=== PATIENT | female | born 1970 | race Hispanic/Latino ===

== ENCOUNTER 2017-11-16 13:05 | Inpatient (IN) | payer OTHER ==
[2017-11-16] MEDS ORDERED: Sodium Chloride 0.9% 1,000 ML IV STA (13:21)
--- NOTE | 2017-11-16 13:27 | ED PDOC ---
HPI: Psych/Substance Abuse Time Seen by Provider: 11/16/17 13:15 Chief Complaint (Nursing): Psychiatric Evaluation Chief Complaint (Provider): Suicidal History Per: Patient History/Exam Limitations: no limitations Onset/Duration Of Symptoms: Days Current Symptoms Are (Timing): Still Present Additional Complaint(s): Pt. mother called ambulance because pt. states she was suicidal and took meds to hurt self (unclear which). Pt. brought by ambulance and in triage pt. states she took valium, alcohol, and coccaine. Pt. states to provider she took xanax to hurt self 2 weeks ago. Pt. denies any pain, weakness, headaches, chest pain, dyspnea, cough, nausea, vomit, diarrhea, abd pain. No cuts to self. Past Medical History Reviewed: Nursing Documentation, Vital Signs Vital Signs: Last Vital Signs Temp 98.0 F 11/16/17 13:07 Pulse 91 H 11/16/17 13:07 Resp 20 11/16/17 13:07 BP 114/75 11/16/17 13:07 Pulse Ox 97 11/16/17 13:07 - Medical History PMH: Denies: Asthma, CAD - Surgical History Surgical History: No Surg Hx - Family History Family History: States: Unknown Family Hx - Living Arrangements Living Arrangements: With Family - Social History Current smoker - smoking cessation education provided: No Alcohol: Occasional Drugs: Cocaine - Allergies Allergies/Adverse Reactions: Allergies Allergy/AdvReac Type Severity Reaction Status Date / Time No Known Allergies Allergy Verified 11/16/17 13:07 Review of Systems ROS Statement: Except As Marked, All Systems Reviewed And Found Negative Psych: Positive for: Suicidal ideation Physical Exam - Reviewed Nursing Documentation Reviewed: Yes Vital Signs Reviewed: Yes - Physical Exam Appears: Positive for: Non-toxic, No Acute Distress Head Exam: Positive for: ATRAUMATIC, NORMAL INSPECTION, NORMOCEPHALIC Skin: Positive for: Normal Color, Warm, DRY Eye Exam: Positive for: EOMI, Normal appearance, PERRL ENT: Positive for: Normal ENT Inspection Neck: Positive for: Normal, Painless ROM Cardiovascular/Chest: Positive for: Regular Rate, Rhythm Respiratory: Positive for: CNT, Normal Breath Sounds Gastrointestinal/Abdominal: Positive for: Normal Exam, Soft. Negative for: Tenderness Back: Positive for: Normal Inspection. Negative for: L CVA Tenderness, R CVA Tenderness Extremity: Positive for: Normal ROM. Negative for: Tenderness, Pedal Edema Neurologic/Psych: Positive for: Alert, adult literacy instructor II-XII, Oriented. Negative for: Motor/Sensory Deficits, Aphasia, Facial Droop - Laboratory Results Result Diagrams: 11/16/17 13:57 11/16/17 13:57 Interpretation Of Abn Labs: coccaine, benzo, etoh - ECG ECG: Positive for: Interpreted By Me, Viewed By Me ECG Rhythm: Positive for: Normal QRS, Normal ST Segment, Sinus Rhythm O2 Sat by Pulse Oximetry: 97 Pulse Ox Interpretation: Normal - Progress ED Course And Treament: 1332: Spoke with poison control. Aware of presentation and symptoms. Symptomatic tx. 1825: Stable. Alert. Will have crisis see pt. Dr. Jarvis to take over care. Medically stable for crisis. Disposition - Clinical Impression Clinical Impression: Drug abuse, Alcohol abuse - Disposition Disposition Time: 18:27 Condition: STABLE
[2017-11-16 14:10] LABS: BASO % 0.5 % (0.0-2.0); EOS # 0.5 K/uL (0.0-0.7); EOS % 7.1 % (0.0-4.0); LYMPH # 2.2 K/uL (1.0-4.3); LYMPH % 29.9 % (20.0-40.0); MEAN CELL VOLUME 88.7 fl (81.0-99.0); MEAN CORPUSCULAR HEMOGLOBIN 29.9 pg (27.0-31.0); MEAN CORPUSCULAR HGB CONC 33.7 g/dL (33.0-37.0); MEAN PLATELET VOLUME 7.7 fl (7.2-11.7); MONO # 0.4 K/uL (0.0-0.8); MONO % 5.8 % (0.0-10.0); NEUT # 4.2 K/uL (1.8-7.0); NEUT % 56.7 % (50.0-75.0); RBC 5.03 Mil/uL (3.80-5.20); RED CELL DISTRIBUTION WIDTH 12.4 % (11.5-14.5); WHITE BLOOD COUNT 7.4 K/uL (4.8-10.8)
[2017-11-16 14:16] LABS: PROTHROMBIN TIME 10.6 Seconds (9.8-13.1)
[2017-11-16 14:17] LABS: PARTIAL THROMBOPLASTIN TIME 32.8 Seconds (25.6-37.1)
[2017-11-16 14:25] LABS: ALB/GLOB RATIO 1.3 (1.0-2.1); ALBUMIN 4.5 g/dL (3.5-5.0); ALT/SGPT 38 U/L (9-52); AST/SGOT 41 U/L (14-36); BLOOD UREA NITROGEN 14 mg/dl (7-17); CALCIUM 9.1 mg/dL (8.4-10.2); GFR AFRICAN-AMERICAN > 60; GFR NON-AFRICAN AMERICAN > 60
[2017-11-16 14:45] LABS: BARBITURATES, UR NEGATIVE (NEGATIVE); BENZODIAZEPINES, UR POSITIVE (NEGATIVE); OPIATES, UR NEGATIVE (NEGATIVE); PHENCYCLIDINE, UR NEGATIVE (NEGATIVE)
[2017-11-16 19:22] VITALS: RESP 18
--- NOTE | 2017-11-16 19:28 | ED PDOC ---
- Laboratory Results Result Diagrams: 11/16/17 13:57 11/16/17 13:57 - ECG O2 Sat by Pulse Oximetry: 95 (RA) Pulse Ox Interpretation: Normal Medical Decision Making Medical Decision Making: Patient signed out to provider at [address] Garcia pending crisis evaluation. ---- Documented by Argenis Mcclain acting as a scribe for Anatoliy Jarvis MD. All medical record entries made by the Scribe were at my direction and personally dictated by me. I have reviewed the chart and agree that the record accurately reflects my personal performance of the history, physical exam, medical decision making, and the department course for this patient. I have also personally directed, reviewed, and agree with the discharge instructions and disposition. Disposition Discussed With : Rayna Apple Counseled Patient/Family Regarding: Studies Performed, Diagnosis - Clinical Impression Clinical Impression: Drug abuse, Alcohol abuse - POA Present On Arrival: None - Disposition Disposition: Admitted as In-Patient Disposition Time: 22:28 Condition: STABLE
[2017-11-16] MEDS ORDERED: Alum-Mag Hydrox-Simethicone Susp (30 mL) PO PRN (23:19)
[2017-11-16] MEDS ORDERED: Magnesium Hydroxide Susp 30 ml UD PO PRN (23:19)
[2017-11-16 23:23] VITALS: O2SAT 95
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
[2017-11-17] MEDS ORDERED: Pneumococcal 23-Valent Vaccine IM ONE (00:47)
[2017-11-17 07:44] LABS: T4 4.89 ug/dl (5.5-11.0)
--- NOTE | 2017-11-17 11:36 | PCM.PSYCH ---
Initial Psychiatric Evaluation - Initial Psychiatric Evaluation Type of Admission: Voluntary Legal Status: Capacity Chief Complaint (in patient's own words): "I'm depressed." Patient's Reaction to Hospitalization: HPI: 47 yo female w/ h/o depression, alcohol/benzo/cocaine use disorder, presents s/p suicide attempt by OD last week w/ Vodka, Valium and Cocaine. She reports that she has been feeling depressed in the context of conflict with her significant other. +depressed mood +anxiety +sleep disturbances +suicide attempt; denies current active suicidal ideation/plan/intent. She is agreeable to treatment w/ antidepressants but is concerned about weight gain and sexual side effects. Collateral obtained in ER by benzene worker: Joseph Paul and Cindy Cooper /[phone] Patient's stated that the patient has a drinking problem. He reported that the patient binge drinks and that she spends most of her time intoxicated. He reported that she has appeared to be depressed for some time. He however did state that while they are still he is solely in the home to take care of the son. The patient's son has Aspergers. Patients mother stated that the patient was drinking during the course of the morning and kept calling her mother's phone. She stated that the patient was saying statements to her and then hanging up. The patient was cursing her mother out at times during these calls. The call that alarmed the mother is when the daughter slurred her words and stated she had taken 8 Valiums along with alcohol. Patient later on admitted to using cocaine as well. Patient's mother then called the ambulance to go to the patient's house. Patient's mother then left the house to come up this way to meet the ambulance. PPHx: H/o two previous psychiatric hospitalization, most recent in 2004. She receives Xanax from her PMD. H/o tx w/ Lexapro, Zoloft and Depakote in the past. PMHx: Denies acute medical issues ALL: NKDA SHx: Lives w/ her and son who has Asperger's syndrome. 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 +Benzo abuse (Xanax/Valium), +ETOH abuse, +Cocaine abuse ; denies cig use. Current Medications: Active Medications Generic Name Dose Route Start Last Admin Trade Name Freq PRN Reason Stop Dose Admin Acetaminophen 650 mg 11/16/17 23:19 Tylenol 325mg Tab PO Q4 PRN Pain, moderate (4-7) Al Hydrox/Mg Hydrox/Simethicone 30 ml 11/16/17 23:19 Maalox Plus 30 Ml PO Q4 PRN Dyspepsia Folic Acid 1 mg 11/17/17 09:00 Folic Acid PO DAILY DRISS Lorazepam 2 mg 11/16/17 23:29 Ativan IM Q4 PRN Anxiety/Agitation,Unable PO Lorazepam 1 mg 11/16/17 23:29 Ativan PO Q4 PRN Anxiety/Agitation Lorazepam 0.5 mg 11/17/17 13:00 Ativan PO TID DRISS Magnesium Hydroxide 30 ml 11/16/17 23:19 Milk Of Magnesia PO HS PRN Constipation Multivitamins/Minerals 1 tab 11/17/17 09:00 Therapeutic-M Tab PO DAILY DRISS Thiamine HCl 100 mg 11/17/17 09:00 Vitamin B1 Tab PO DAILY DRISS Trazodone HCl 50 mg 11/16/17 23:19 Desyrel PO HS PRN Insomnia Past Psychiatric History - Past Psychiatric History Previous Treatment History: Inpatient Pertinent Medical Hx (Current Medical&Sleep Prob, Allergies): Allergies Allergy/AdvReac Type Severity Reaction Status Date / Time No Known Allergies Allergy Verified 11/16/17 13:07 ALPRAZolam [Xanax] 1 mg PO HS PRN 11/16/17 Review of Systems - Psychiatric Psychiatric: As Per HPI, Abnormal Sleep Pattern, Anhedonia, Anxiety, Depression , Difficulty Concentrating, Irritability, Mood Swings, Suicidal Ideation Mental Status Examination - Personal Presentation Personal Presentation: Looks stated age - Affect Affect: Constricted - Motor Activity Motor Activity: Calm - Reliability in Providing Information Reliability in Providing Information: Fair - Speech Speech: Organized, Coherent - Mood Mood: Depressed - Formal Thought Process Formal Thought Process: No Impairment - Hallucinations/Delusions Additional comments: NO AH/VH/paranoia/delusions - Obsessions/Compulsions Obsessions: No Compulsions: No - Cognitive Functions Orientation: Person, Place, Situation, Time Sensorium: Alert Attention/Concentration: Attentive Judgement: Imparied, as evidence by: Poor judgement, Imparied, as evidence by: Lack of insight into illness Memory: Recent intact, as evidence by: Ability to recall events of the day, Remote intact, as evidenced by: Abilit to recall sig. life events, Remote intact , as evidenced by: Ability to recall historical events - Risk Risk: Suicidal - Strength & Assets Inventory Strength & Assets Inventory: Family support, Cooperative DSM 5 DX - DSM 5 DSM 5 Diagnosis: Depressive Disorder r/o substance induced mood disorder; Benzodiazepine/Cocaine/ Alcohol Use Disorders - Recommended/Plan of Treatment Treatment Recommendations and Plan of Treatment: Depressive Disorder r/o substance induced mood disorder; Benzodiazepine/Cocaine/ Alcohol Use Disorders -Admit to psychiatry unit -Individual and group therapy - to call DCP&P; patient actively abusing illicit substances and alcohol and takes care of her disabled son -Start Wellbutrin -Ativan as needed to prevent ETOH/benzo withdrawal -Psychoeducation -Medicine consult -Disposition planning Projected ELOS: 5-8 days Discharge Plan and Discharge Criteria: Discharge when patient is psychiatrically stable - Smoking Cessation Smoking Cessation Initiated: No Reason for not providing: Not indicated
[2017-11-17] MEDS: Multivitamin With Minerals Tab PO SCH (13:19)
--- NOTE | 2017-11-17 15:24 | CARD ---
APPROVED REPORT EKG Measurement Heart [id number] <Conclusion> Normal sinus rhythm Normal ECG
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
[2017-11-18] MEDS: Multivitamin With Minerals Tab PO SCH (14:00)
--- NOTE | 2017-11-18 17:04 | PCM.PYCHPN ---
Psychiatric Progress Note - Psychiatric Progress Note Patient seen today, length of contact: pt evaluated discussed with team chart reviewed Patient Chief Complaint: I need to go to inpatient rehab Problems Identified/Issues Discussed: pt seen in bed, continues to be depressed, anhedonic, low energy isolative in her room, pt reported feeling down due to her current social situation and the mental condition of her son motivational therpy provided , discussed with patient joining inpatient rehab no reported side effects of mmedications pt denied any current suicidal or homicidal ideation DSM 5 Symptoms Update: alcohol induced mood disorder cocaine use disorder depression Medication Change: Yes (wellbutrin sr) Medical Record Reviewed: Yes Mental Status Examination - Cognitive Function Orientation: Person, Place, Situation, Time Attention: WNL Concentration: WNL Association: WNL Fund of Knowledge: WN Decription of patient's judgement and insights: partial insight , poor judgment - Mood Mood: Depressed - Affect Affect: Constricted - Speech Speech: Soft - Formal Thought Process Formal Thought Process: No Impairment, Circumstantial Psychotic Thoughts and Behaviors: pt denied any current perceptual disturbances - Suicidal Ideation Suicidal Ideation: No - Homicidal Ideation Homicidal Ideation: No Goal/Treatment Plan - Goal/Treatment Plan Need for Continued Stay: Severe depression anxiety, Discharge may exacerbated symptoms Progress Toward Problem(s) and Goals/Treatment Plan: wellbutrin 150mg daily motivational therapy referral to rehab
--- NOTE | 2017-11-19 08:09 | CP.PCM.PN ---
<Sultan Shilpi - Last Filed: 11/19/17 08:14> Subjective - Date & Time of Evaluation Date of Evaluation: 11/19/17 Time of Evaluation: 07:30 - Subjective Subjective: Patient seen and examined at bedside this morning during rounds. Pt reports her body aches has resolved. Denies any headache, dizziness, blurry vision, chest pain, palpitation, dyspnea, cough, GI or complaints. Denies fever or chills. Has good appetite. Reports normal BM and voiding normally. Objective - Vital Signs/Intake and Output Vital Signs (last 24 hours): Temp Pulse Resp BP Pulse Ox 98.2 F 85 18 103/65 95 11/18/17 16:40 11/18/17 16:40 11/18/17 16:40 11/18/17 16:40 11/16/17 23:23 - Medications Medications: Current Medications Acetaminophen (Tylenol 325mg Tab) 650 mg PO Q4 PRN PRN Reason: Pain, moderate (4-7) Al Hydrox/Mg Hydrox/Simethicone (Maalox Plus 30 Ml) 30 ml PO Q4 PRN PRN Reason: Dyspepsia Bupropion HCl (Wellbutrin Sr 150 Mg) 150 mg PO DAILY [facility] Folic Acid (Folic Acid) 1 mg PO DAILY [facility] Last Admin: 11/18/17 08:40 Dose: 1 mg Lorazepam (Ativan) 2 mg IM Q4 PRN PRN Reason: Anxiety/Agitation,Unable PO Lorazepam (Ativan) 1 mg PO Q4 PRN PRN Reason: Anxiety/Agitation Lorazepam (Ativan) 0.5 mg PO TID [facility] Last Admin: 11/18/17 17:14 Dose: 0.5 mg Magnesium Hydroxide (Milk Of Magnesia) 30 ml PO HS PRN PRN Reason: Constipation Multivitamins/Minerals (Therapeutic-M Tab) 1 tab PO DAILY [facility] Last Admin: 11/18/17 14:00 Dose: 1 tab Thiamine HCl (Vitamin B1 Tab) 100 mg PO DAILY [facility] Last Admin: 11/18/17 08:40 Dose: 100 mg Trazodone HCl (Desyrel) 50 mg PO HS PRN PRN Reason: Insomnia - Labs Labs: 11/16/17 13:57 11/16/17 13:57 PT 10.6 Seconds (9.8-13.1) 11/16/17 13:57 INR 1.0 (0.9-1.2) 11/16/17 13:57 APTT 32.8 Seconds (25.6-37.1) 11/16/17 13:57 - Additional Findings Additional findings: - Constitutional Appears: Non-toxic, No Acute Distress - Head Exam Head Exam: ATRAUMATIC, NORMAL INSPECTION, NORMOCEPHALIC - ENT Exam ENT Exam: Mucous Membranes Moist - Neck Exam Neck exam: Positive for: Full Rom, Normal Inspection. Negative for: Lymphadenopathy, Meningismus, Tenderness, Thyromegaly - Respiratory Exam Respiratory Exam: Clear to Auscultation Bilateral. absent: Rales, Rhonchi, Wheezes - Cardiovascular Exam Cardiovascular Exam: REGULAR RHYTHM, RRR, +S1, +S2 - GI/Abdominal Exam GI & Abdominal Exam: Normal Bowel Sounds, Soft. absent: Rebound, Rigid, Tenderness - Extremities Exam Extremities exam: Positive for: normal inspection. Negative for: calf tenderness, pedal edema - Neurological Exam Neurological exam: Alert, Oriented x3 - Psychiatric Exam Psychiatric exam: Anxious, Depressed - Skin Skin Exam: Normal Color, Warm Assessment and Plan - Assessment and Plan (Free Text) Assessment: Assessment: 47 yo female with pmhx anxiety, depression, and substance use disorder admitted to psychiatry unit for suicidal attempt with drug overdose and has no significant medical problems. Plan: Alcohol induced mood disorder, Depression -Manage per psychiatry team. Generalized bodyaches resolved. -Afebrile, Stable vitals. -CBC, CMP, TSH: WNL -Acetaminophen 650 mg po q6hr prn -Pt is medically stable -Thank you for the medicine consult and allowing to take part in patient care -Will sign off for now. Please re-consult PRN <Romain Hankins - Last Filed: 11/20/17 06:55> Objective - Vital Signs/Intake and Output Vital Signs (last 24 hours): Temp Pulse Resp BP Pulse Ox 97.5 F L 69 18 106/64 95 11/19/17 15:58 11/19/17 15:58 11/19/17 15:58 11/19/17 15:58 11/16/17 23:23 - Medications Medications: Current Medications Acetaminophen (Tylenol 325mg Tab) 650 mg PO Q4 PRN PRN Reason: Pain, moderate (4-7) Al Hydrox/Mg Hydrox/Simethicone (Maalox Plus 30 Ml) 30 ml PO Q4 PRN PRN Reason: Dyspepsia Bupropion HCl (Wellbutrin Sr 150 Mg) 150 mg PO DAILY [facility] Last Admin: 11/19/17 09:34 Dose: 150 mg Folic Acid (Folic Acid) 1 mg PO DAILY [facility] Last Admin: 11/19/17 09:34 Dose: 1 mg Lorazepam (Ativan) 2 mg IM Q4 PRN PRN Reason: Anxiety/Agitation,Unable PO Lorazepam (Ativan) 1 mg PO Q4 PRN PRN Reason: Anxiety/Agitation Magnesium Hydroxide (Milk Of Magnesia) 30 ml PO HS PRN PRN Reason: Constipation Multivitamins/Minerals (Therapeutic-M Tab) 1 tab PO DAILY [facility] Last Admin: 11/19/17 09:34 Dose: 1 tab Thiamine HCl (Vitamin B1 Tab) 100 mg PO DAILY [facility] Last Admin: 11/19/17 09:34 Dose: 100 mg Trazodone HCl (Desyrel) 50 mg PO HS PRN PRN Reason: Insomnia Last Admin: 11/20/17 01:05 Dose: 50 mg - Labs Labs: 11/16/17 13:57 11/16/17 13:57 PT 10.6 Seconds (9.8-13.1) 11/16/17 13:57 INR 1.0 (0.9-1.2) 11/16/17 13:57 APTT 32.8 Seconds (25.6-37.1) 11/16/17 13:57 Attending/Attestation - Attestation I have personally seen and examined this patient.: Yes I have fully participated in the care of the patient.: Yes I have reviewed all pertinent clinical information, including history, physical exam and plan: Yes
[2017-11-19] MEDS: Multivitamin With Minerals Tab PO SCH (09:34)
[2017-11-19] MEDS: buPROPion SR 150 MG TABLET PO SCH (09:34)
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
[2017-11-20] MEDS: Multivitamin With Minerals Tab PO SCH (08:53)
[2017-11-20] MEDS: buPROPion SR 150 MG TABLET PO SCH (08:54)
--- NOTE | 2017-11-20 14:59 | PCM.PYCHPN ---
Psychiatric Progress Note - Psychiatric Progress Note Patient seen today, length of contact: pt evaluated discussed with team chart reviewed Patient Chief Complaint: I am ready to do what it takes to get back on my feet Problems Identified/Issues Discussed: pt evaluated with treatment team, discussed with patient [facility], patient agreed, reported less depressed with wellbutrin, reported early insomnia, discussed increasing trazodone to 100mg qhs , motivational therapy provided patient denied any current suicidal or homicidal ideations, denied perceptual disturbances DSM 5 Symptoms Update: substance induced mood disorder cocaine use disorder alcohol use disorder xanax use disorder Medication Change: Yes (increase trazodone) Medical Record Reviewed: Yes Mental Status Examination - Cognitive Function Orientation: Person, Place, Situation, Time Attention: WNL Concentration: WNL Association: WNL Fund of Knowledge: WN Decription of patient's judgement and insights: partial insight , poor judgment - Mood Mood: Anxious - Affect Affect: Constricted - Speech Speech: Soft - Formal Thought Process Formal Thought Process: No Impairment, Circumstantial Psychotic Thoughts and Behaviors: pt denied any current perceptual disturbances - Suicidal Ideation Suicidal Ideation: No - Homicidal Ideation Homicidal Ideation: No Goal/Treatment Plan - Goal/Treatment Plan Need for Continued Stay: Severe depression anxiety, Discharge may exacerbated symptoms Progress Toward Problem(s) and Goals/Treatment Plan: wellbutrin sr 150mg daily, trazodone 100mg qhs motivational therapy referral to rehab
[2017-11-21] MEDS: buPROPion SR 150 MG TABLET PO SCH (08:38)
[2017-11-21] MEDS: Multivitamin With Minerals Tab PO SCH (08:38)
[2017-11-21 09:34] VITALS: BP 115/65; PULSE 60; TEMP 96.1
--- NOTE | 2017-11-21 11:41 | PCM.PYCHDC ---
Mental Status Examination - Mental Status Examination Orientation: Person, Place, Situation Memory: Intact Mood: Neutral Affect: Broad Speech: Appropriate Attention: WNL Concentration: WNL Association: WNL Fund of Knowledge: WNL Formal Thought Process: Circumstantial Description of patient's judgement and insight: partial insight , poor judgment Psychotic Thoughts and Behaviors: pt denied any current perceptual disturbances Suicidal Ideation: No Current Homicidal Ideation?: No Discharge Summary - Discharge Note Reason for Hospitalization: 47 yo female w/ h/o depression, alcohol/benzo/cocaine use disorder, presents s/ p suicide attempt by OD last week w/ Vodka, Valium and Cocaine. She reports that she has been feeling depressed in the context of conflict with her significant other. +depressed mood +anxiety +sleep disturbances +suicide attempt; denies current active suicidal ideation/plan/intent. She is agreeable to treatment w/ antidepressants but is concerned about weight gain and sexual side effects. Collateral obtained in ER by ironworker wire fence erector: Joseph Paul and Cindy Cooper [phone] Patient's stated that the patient has a drinking problem. He reported that the patient binge drinks and that she spends most of her time intoxicated. He reported that she has appeared to be depressed for some time. He however did state that while they are still he is solely in the home to take care of the son. The patient's son has Aspergers. Patients mother stated that the patient was drinking during the course of the morning and kept calling her mother's phone. She stated that the patient was saying statements to her and then hanging up. The patient was cursing her mother out at times during these calls. The call that alarmed the mother is when the daughter slurred her words and stated she had taken 8 Valiums along with alcohol. Patient later on admitted to using cocaine as well. Patient's mother then called the ambulance to go to the patient's house. Patient's mother then left the house to come up this way to meet the ambulance. Consultations:: List each consultation separately and include: 1. Reason for request. 2. Findings. 3. Follow-up Summary of Hospital Course include:: 1. Description of specific treatment plan utilized for patients during their course of treatmen. 2. Summarize the time- course for resolution of acute symptoms and/or regressed behaviors. 3. Describe issues identified and worked on during hospitalization. 4. Describe medication utilized. 5. Describe medical problems identified and treated. 6. Reassessment of suicide risk Summary of Hospital Course: pt on admission was started on ativan protocol and monitored for symptoms and signs of alcohol withdrawal pt was also started on wellbutrin , it was up titrated to 150mg daily for depression and to help with cravings Division of child protection services was contacted for safety of the patient;s 10year old son motivational therapy provided and pt agreed to be transferrd to [facility]hab pt on discharge, mental status was stable denied any suicidal or homicidal ideations denied perceptual disturbances, no reported side effects of medications - Diagnosis (1) Alcohol abuse Current Visit: Yes Status: Acute - Final Diagnosis (DSM 5) Condition upon Discharge: STABLE DSM 5: alcohol induced mood disorder with depressive features alcohol use disorder benzodiazepine use disorder cocaine abuse adjustment disorder with depressed mood Disposition: HOME/ ROUTINE Follow-up Treatment Plan: [facility] - Antipsychotic Medications Pt discharged on 2 or more routine antipsychotic medications: No
== END 2017-11-21 11:30 | disposition home or self-care (01) | DRG 895 ==
LOC: H.ER 13:05 → H.ERHOLD 22:28 → H.PSYCH 23:25
PROVIDERS: ADMIT Psychiatry & Neurology Psychiatry; ATTEND Psychiatry & Neurology Psychiatry
PROC: HZ52ZZZ Individual Psychotherapy for Substance Abuse Treatment, Cognitive-Behavioral (ICD-10-PCS; principal; 2017-11-16)
PROC: GZHZZZZ Group Psychotherapy (ICD-10-PCS; 2017-11-16)
PROC: GZ58ZZZ Individual Psychotherapy, Cognitive-Behavioral (ICD-10-PCS; 2017-11-16)
DX: F10.14 Alcohol abuse with alcohol-induced mood disorder (principal); F43.21 Adjustment disorder with depressed mood; F14.10 Cocaine abuse, uncomplicated; Y90.8 Blood alcohol level of 240 mg/100 ml or more; F13.10 Sedative, hypnotic or anxiolytic abuse, uncomplicated; F41.9 Anxiety disorder, unspecified; Z91.5 Personal history of self-harm; G47.00 Insomnia, unspecified